=== PATIENT | female | born 1955 | race Caucasian/White ===

== ENCOUNTER 2016-05-23 19:46 | Emergency (ER) | payer BC ==
[~2016-05-23 19:46] MED LIST: BUSPIRONE HCL10 MG PO; CALCIUM 600 + D1 TA1 PO; KEFLEX500 MG PO; LORTAB 5/500 TA1 TA1 PO; MELATONIN1 MG PO; MULTIVITAMINS1 EAC2 PO; PRAVACHOL; PRAVACHOL PO; PRAVACHOL20 MG PO; PREMARIN0.625 MG PO; ZYRTEC PO
== END 2016-05-23 20:45 | disposition home or self-care (01) ==
LOC: SED 19:46
DX: S61.411A Laceration without foreign body of right hand, initial encounter (principal); W54.0XXA Bitten by dog, initial encounter; Z88.8 Allergy status to other drugs, medicaments and biological substances; Z79.899 Other long term (current) drug therapy
CPT/HCPCS: 90471; 90715; 99283